=== PATIENT | male | born 1935 | race Two or more races ===

== ENCOUNTER 2022-05-22 20:05 | Inpatient (IN) | payer OTHER ==
[~2022-05-22] VITALS: Ht 170.2 cm; Wt 81.6 kg
--- NOTE | 2022-05-22 20:21 | NUR ---
: david at b/s examined and spoked with patient .
[2022-05-22] MEDS ORDERED: IV NORMAL SALINE 500 ML BAG IV ONE (20:30)
[2022-05-22 20:55] LABS: HEMATOCRIT 37.5 % (36.7-47.1); MEAN CORPUSCULAR HEMOGLOBIN 32.7 uug (23.8-33.4); MEAN CORPUSCULAR VOLUME 99.8 fL (73.0-96.2); PLATELET COUNT (AUTO) 288 K/uL (152-348)
[2022-05-22 20:59] LABS: CARBON DIOXIDE 25 mmol/L (21-32); CHLORIDE 103 mmol/L (98-107); CREATININE 2.1 mg/dL (0.6-1.3); GLUCOSE 120 mg/dL (74-106); POTASSIUM 3.8 mmol/L (3.5-5.1); UREA NITROGEN, BLOOD 39 mg/dL (7-18)
[2022-05-22 21:08] LABS: ALANINE AMINOTRANSFERASE 18 U/L (16-63); ALKALINE PHOSPHATASE 93 U/L (50-136); ASPARTATE AMINOTRANSFERASE 14 U/L (15-37); BILIRUBIN,DIRECT 0.1 mg/dL (0.0-0.2); BILIRUBIN,TOTAL 0.5 mg/dL (0.2-1.0); TOTAL PROTEIN, SERUM 8.2 g/dL (6.4-8.2)
[2022-05-22] MEDS ORDERED: IRBE1TAB41 PO (21:13)
[2022-05-22] MEDS ORDERED: NIFE90TA2 PO (21:13)
[2022-05-22] MEDS ORDERED: ASPI81TA31 PO (21:13)
[2022-05-22] MEDS ORDERED: HYDR-4077 PO (21:13)
[2022-05-22] MEDS ORDERED: SIMV-49 PO (21:13)
[2022-05-22] MEDS ORDERED: ALLO100T PO (21:13)
--- NOTE | 2022-05-22 21:40 | NUR ---
Urine taken to lab.
--- NOTE | 2022-05-22 21:45 | NUR ---
X-ray done at bedside.
[2022-05-22 22:08] LABS: *BILIRUBIN,URIN NEGATIVE (NEGATIVE); *BLOOD, URINE NEGATIVE (NEGATIVE); *CLARITY,URINE CLEAR (CLEAR); *COLOR,URINE YELLOW (YELLOW); *KETONES,URINE NEGATIVE (NEGATIVE); *UROBILINOGEN,URINE 0.2 E.U./dl (NORMAL); LEUKOCYTE ESTERASE ,URINE NEGATIVE (NEGATIVE); NITRITE, URINE NEGATIVE (NEGATIVE); PH,URINE 5.5 (5.0-8.0); UGLUCOSE NEGATIVE (NEGATIVE)
[2022-05-22] MEDS ORDERED: CLINDAMYCIN PHOSPHATE IV 600 MG in IV DEXTROSE 5% 100 ML IV STA (23:19)
[2022-05-22] MEDS ORDERED: CLINDAMYCIN PHOSPHATE 600 MG/4 ML VIAL ONE (23:51)
--- NOTE | 2022-05-23 00:15 | NUR ---
Called [facility] for panel call for admission. christina sosa
[2022-05-23] MEDS ORDERED: IV NS 1000 ML 1,000 ML IV PRN (00:30)
[2022-05-23] MEDS ORDERED: CEFTRIAXONE 1 G in IV DEXTROSE 5% 50 ML IV SCH (00:30)
[2022-05-23] MEDS ORDERED: ACETAMINOPHEN 325 MG TABLET PO PRN (00:30)
[2022-05-23] MEDS ORDERED: ONDANSETRON 4 MG/2 ML VIAL IV PRN (00:30)
[2022-05-23] MEDS ORDERED: CEFTRIAXONE /D5W 50ML IVPB **ER PYXIS IV ONE (00:51)
[2022-05-23 01:21] LABS: THYROID STIMULATING HORMONE 1.527 mIU/mL (0.358-3.740)
--- NOTE | 2022-05-23 01:30 | NUR ---
call for bed in tele unit. Instructed to call back at later time due to urgent matter in unit.
[2022-05-23 01:45] LABS: ALANINE AMINOTRANSFERASE 14 U/L (16-63); ALKALINE PHOSPHATASE 87 U/L (50-136); ASPARTATE AMINOTRANSFERASE 8 U/L (15-37); BILIRUBIN,TOTAL 0.5 mg/dL (0.2-1.0); CARBON DIOXIDE 22 mmol/L (21-32); CHLORIDE 104 mmol/L (98-107); CREATININE 2.1 mg/dL (0.6-1.3); GLUCOSE 138 mg/dL (74-106); MAGNESIUM 1.9 mg/dL (1.8-2.4); PHOSPHOROUS 2.9 mg/dL (2.5-4.9); POTASSIUM 3.7 mmol/L (3.5-5.1); UREA NITROGEN, BLOOD 34 mg/dL (7-18)
--- NOTE | 2022-05-23 03:42 | NUR ---
Call for bed for tele unit.
[2022-05-23 06:12] LABS: HEMATOCRIT 37.7 % (36.7-47.1); MEAN CORPUSCULAR HEMOGLOBIN 32.6 uug (23.8-33.4); MEAN CORPUSCULAR VOLUME 100.6 fL (73.0-96.2); PLATELET COUNT (AUTO) 260 K/uL (152-348)
--- NOTE | 2022-05-23 07:05 | NUR ---
REPORT RECEIVED FROM OUT GOING RN. PT A,A AND O X 3, SPOUSE AT BEDSIDE.
[2022-05-23 08:00] VITALS: BP 160/79
--- NOTE | 2022-05-23 08:00 | NUR ---
VS INDICATED HTN OF WHICH IS INDICATED IN PATIENT'S HX. HIS SPOUSE HAS HIS MEDICATIONS AT BEDSIDE AND AWAITING PCP TO REVIEW AND RECONCILE.DENIES BRYAN AND JASSO X4, SPEECH CLEAR. LOW GRADE TEMP 99.3 AND LAB REVIEWED THIS MORNING INDICATED WBC 14.0/CREAT 2.1 HANDS TREMORS AND DIFFICULTY SLEEPING REPORTED AND PCP TO ADDRESS.
[2022-05-23] MEDS ORDERED: PANTOPRAZOLE SODIUM 40 MG VIAL ONE (08:24)
[2022-05-23] MEDS: PANTOPRAZOLE SODIUM 40 MG VIAL IV SCH (08:37)
--- NOTE | 2022-05-23 09:37 | NUR ---
PCP IN TO EVAL PATIENT AND HOME MEDS WITH LIST OF PHYSICIAN PROVIDED BY SPOUSE. AWAITING NEW ORDERS PER PHYSICIAN'S ASSESSMENT AND PLAN.
[2022-05-23] MEDS ORDERED: ASPIRIN 81 MG TAB.CHEW PO SCH (10:15)
[2022-05-23] MEDS ORDERED: hydrALAZINE HCL 50 MG TABLET PO SCH (10:15)
--- NOTE | 2022-05-23 10:21 | NUR ---
B/P IS TRENDING DOWN FROM 160/79, NOW 146/82. NEW ORDERS NOTED.
[2022-05-23] MEDS ORDERED: CELE100C PO (10:30)
[2022-05-23] MEDS ORDERED: methylPREDNISolone SOD SUCC 40 MG/ML VIAL ONE (10:34)
[2022-05-23] MEDS ORDERED: ACETAMINOPHEN 325 MG TABLET ONE (10:34)
[2022-05-23] MEDS: IV 1/2NS 1000 ML 1,000 ML IV PRN (10:46)
--- NOTE | 2022-05-23 10:46 | NUR ---
BILAT ARMS PAIN 12/28. MEDICATED WITH TYLENOL 650 MG PO. RE-EVAL IN 1 HOUR
[2022-05-23] MEDS: methylPREDNISolone SOD SUCC 40 MG/ML VIAL IV SCH ×2 (10:47→23:23)
[2022-05-23 12:00] VITALS: BP 120/67
[2022-05-23 15:30] VITALS: BP 128/43
--- NOTE | 2022-05-23 15:30 | NUR ---
REPORT GIVEN TO GUERO JOHANSEN ASSUMING CARE FOR RM 304. PATIENT AND SPOUSE NOTIFIED.
[2022-05-23 16:24] VITALS: BP 124/70
--- NOTE | 2022-05-23 16:54 | NUR ---
86 year old male received to room 304 for fever ,pt is axox4.call light with in reach .vs are stable .family at bed side.
[2022-05-23] MEDS: ALLOPURINOL 100 MG TABLET PO SCH (17:10)
[2022-05-23] MEDS: hydrALAZINE HCL 50 MG TABLET PO SCH (17:10)
[2022-05-23 17:26] LABS: URIC ACID 5.2 mg/dL (3.5-7.2)
[2022-05-23 20:00] VITALS: BP 149/50
[2022-05-23 20:03] VITALS: BP 113/56
[2022-05-23] MEDS ORDERED: SIMVASTATIN 40 MG TABLET PO SCH (21:00)
[2022-05-24] VITALS: BP 121/54
[2022-05-24] MEDS: IV 1/2NS 1000 ML 1,000 ML IV PRN ×2 (01:53→16:23)
[2022-05-24 04:00] VITALS: BP 114/58
[2022-05-24] MEDS: ALLOPURINOL 100 MG TABLET PO SCH ×2 (08:01→16:13)
[2022-05-24] MEDS: hydrALAZINE HCL 50 MG TABLET PO SCH ×2 (08:01→16:13)
[2022-05-24] MEDS: PANTOPRAZOLE SODIUM 40 MG VIAL IV SCH (08:18)
[2022-05-24] MEDS: methylPREDNISolone SOD SUCC 40 MG/ML VIAL IV SCH (08:18)
[2022-05-24 08:22] LABS: HEMATOCRIT 35.4 % (36.7-47.1); MEAN CORPUSCULAR HEMOGLOBIN 33.1 uug (23.8-33.4); MEAN CORPUSCULAR VOLUME 99.5 fL (73.0-96.2); PLATELET COUNT (AUTO) 267 K/uL (152-348)
[2022-05-24 08:28] LABS: CARBON DIOXIDE 23 mmol/L (21-32); CHLORIDE 104 mmol/L (98-107); CREATININE 2.1 mg/dL (0.6-1.3); GLUCOSE 134 mg/dL (74-106); POTASSIUM 3.7 mmol/L (3.5-5.1); UREA NITROGEN, BLOOD 43 mg/dL (7-18)
[2022-05-24] MEDS ORDERED: Medication Not On Formulary EA (Irbesartan/Hydrochlorothiazide (Avalide 150-12.5 Mg Tabl PO SCH (09:00)
[2022-05-24] MEDS ORDERED: LOSARTAN POTASSIUM 50 MG TABLET PO SCH (09:00)
[2022-05-24] MEDS ORDERED: hydrALAZINE HCL 50 MG TABLET PO SCH (09:00)
[2022-05-24] MEDS ORDERED: ASPIRIN 81 MG TAB.CHEW PO SCH (09:00)
[2022-05-24] MEDS ORDERED: HYDROCHLOROTHIAZIDE 12.5 MG CAPSULE PO SCH (09:00)
[2022-05-24] MEDS ORDERED: NIFEdipine XL 90 MG TABSR PO SCH (09:00)
[2022-05-24] MEDS ORDERED: ALLOPURINOL 100 MG TABLET PO SCH (09:00)
[2022-05-24] MEDS ORDERED: AMOX-430 PO (09:29)
[2022-05-24] MEDS ORDERED: METH4TAB3 PO (09:30)
[2022-05-24 11:33] VITALS: BP 123/52
[2022-05-24 15:36] VITALS: BP 120/55
[2022-05-24 16:13] VITALS: BP 120/55
--- NOTE | 2022-05-24 17:20 | NUR ---
dc orders received noted and carried out.dc instruction and education given to the pt .pt said he will follow up with his pcp in one week ,pt left the facility via private car in stable condition
== END 2022-05-24 17:20 | disposition home health service (06) | DRG 602 ==
LOC: ER 20:05 → TRANSITION 05-23 08:46 → TELE3 05-23 15:55 → MEDSURG3 05-24 09:18
PROVIDERS: ADMIT Internal Medicine; ATTEND Internal Medicine
DX: L03.114 Cellulitis of left upper limb (principal); N17.0 Acute kidney failure with tubular necrosis; Z79.82 Long term (current) use of aspirin; G25.0 Essential tremor; I12.9 Hypertensive chronic kidney disease with stage 1 through stage 4 chronic kidney disease, or unspecified chronic kidney disease; N18.9 Chronic kidney disease, unspecified; M10.9 Gout, unspecified; M19.042 Primary osteoarthritis, left hand; Z20.822 Contact with and (suspected) exposure to COVID-19
CPT/HCPCS: 36415; 71045; 73130; 83605; 83735; 84100; 84443; 84484; 84550; 85025; 85651; 85730; 86140; 87040; 87086; 93005; A4663; C9113; G0378; J0696; J2920; J3490; J7040; J8499

== ENCOUNTER 2022-05-27 22:57 | Inpatient (IN) | payer OTHER ==
[~2022-05-27] VITALS: Ht 170.2 cm; Wt 75.7 kg
[~2022-05-27 22:57] MED LIST: ALLO100T PO; AMOX-430 PO; ASPI81TA31 PO; HYDR-4077 PO; IRBE1TAB41 PO; METH4TAB3 PO; NIFE90TA2 PO; SIMV-49 PO
--- NOTE | 2022-05-28 00:25 | NUR ---
Patient placed in room 1b at this time.
--- NOTE | 2022-05-28 00:38 | NUR ---
gis technician into do Ultrasound.
[2022-05-28 00:47] LABS: HEMATOCRIT 38.6 % (36.7-47.1); MEAN CORPUSCULAR HEMOGLOBIN 32.6 uug (23.8-33.4); MEAN CORPUSCULAR VOLUME 99.9 fL (73.0-96.2); PLATELET COUNT (AUTO) 367 K/uL (152-348)
[2022-05-28 00:54] LABS: CARBON DIOXIDE 23 mmol/L (21-32); CHLORIDE 105 mmol/L (98-107); CREATININE 1.9 mg/dL (0.6-1.3); GLUCOSE 111 mg/dL (74-106); POTASSIUM 3.9 mmol/L (3.5-5.1); UREA NITROGEN, BLOOD 42 mg/dL (7-18)
[2022-05-28 03:08] LABS: URIC ACID 4.8 mg/dL (3.5-7.2)
--- NOTE | 2022-05-28 03:41 | NUR ---
Patient is able to walk to the restroom with steady gait
[2022-05-28] MEDS ORDERED: CYANOCOBALAMIN 1000 MCG/ML VIAL ONE (03:56)
[2022-05-28] MEDS ORDERED: CYANOCOBALAMIN 1000 MCG/ML VIAL IM ONE (04:00)
[2022-05-28] MEDS ORDERED: OXYCODONE/APAP 5-325 MG TABLET PO ONE (04:15)
[2022-05-28] MEDS ORDERED: NAFCILLIN IV ONE (04:15)
[2022-05-28] MEDS ORDERED: VANCOMYCIN IV 1,000 MG in IV DEXTROSE 5% 250 ML IV ONE (04:15)
[2022-05-28] MEDS ORDERED: NORMAL SALINE IV ONE (04:15)
[2022-05-28] MEDS ORDERED: VANCOMYCIN IV 200 ML ONE (04:23)
[2022-05-28] MEDS ORDERED: NAFCILLIN SODIUM ONE (04:23)
[2022-05-28] MEDS ORDERED: OXYCODONE/APAP 5-325 MG TABLET ONE (04:25)
--- NOTE | 2022-05-28 04:50 | NUR ---
call to [facility] for panel admission.
--- NOTE | 2022-05-28 04:51 | NUR ---
jose dahl called back for panel admission.
--- NOTE | 2022-05-28 05:38 | NUR ---
Called for bed. No beds available at this time
--- NOTE | 2022-05-28 07:05 | NUR ---
change of shift report to Chacha JOHANSEN
--- NOTE | 2022-05-28 07:10 | NUR ---
Received pt. AAOx4. vitals stable no c/of pain.
[2022-05-28] MEDS ORDERED: ONDANSETRON 4 MG/2 ML VIAL IV PRN (07:15)
[2022-05-28] MEDS ORDERED: IV NS 1000 ML 1,000 ML IV PRN (07:15)
--- NOTE | 2022-05-28 07:26 | NUR ---
Received pt. AAOX4. watching tv. family at bedside. HR of 66, saturation of 95%, RR 18, sbp of 148/74. Addendum: 05/28/22 at 0732 by DYLON No c/o of pain or any other discomfort.
[2022-05-28 07:39] LABS: HEMATOCRIT 35.3 % (36.7-47.1); MEAN CORPUSCULAR HEMOGLOBIN 32.9 uug (23.8-33.4); MEAN CORPUSCULAR VOLUME 99.3 fL (73.0-96.2); PLATELET COUNT (AUTO) 340 K/uL (152-348)
[2022-05-28 07:44] LABS: CARBON DIOXIDE 24 mmol/L (21-32); CHLORIDE 106 mmol/L (98-107); CREATININE 1.8 mg/dL (0.6-1.3); GLUCOSE 100 mg/dL (74-106); POTASSIUM 3.8 mmol/L (3.5-5.1); UREA NITROGEN, BLOOD 37 mg/dL (7-18)
[2022-05-28] MEDS ORDERED: ONDANSETRON 4 MG/2 ML VIAL ONE (09:30)
[2022-05-28] MEDS ORDERED: LIDOCAINE-MPF 2% 5 ML VIAL ONE (09:30)
[2022-05-28] MEDS ORDERED: PROPOFOL 200 MG/20 ML BOTTLE ONE (09:30)
[2022-05-28] MEDS ORDERED: DEXAMETHASONE SOD PHOSPHATE 4 MG INJ ONE (09:30)
--- NOTE | 2022-05-28 12:00 | NUR ---
98.7, LEK336/81, HR 65 rr 17 saturation 97% on RA.
[2022-05-28] MEDS ORDERED: NIFE-35 PO (13:12)
[2022-05-28] MEDS: ASPIRIN 81 MG TAB.CHEW PO SCH (14:00)
[2022-05-28] MEDS ORDERED: NIFEdipine XL 30 MG TABSR PO ONE (14:00)
[2022-05-28] MEDS ORDERED: methylPREDNISolone 1 PACK TAB.DS.PK [4MG TAB] PO SCH (14:00)
[2022-05-28] MEDS ORDERED: methylPREDNISolone 4 MG TABLET (DAY#3, PC LUNCH) PO ONE (14:30)
--- NOTE | 2022-05-28 14:35 | NUR ---
Pt. taken up to room 310 via gurney. situated in bed. AAOX4.
[2022-05-28 14:39] VITALS: BP 150/78
[2022-05-28] MEDS ORDERED: NIFEdipine XL 90 MG TABSR PO ONE (14:45)
--- NOTE | 2022-05-28 14:54 | NUR ---
86 year old male received to room 310 for cellulites .pt is axox4 .vs are stable call light with in reach md notified for admission
[2022-05-28] MEDS: ALLOPURINOL 100 MG TABLET PO SCH (17:06)
[2022-05-28] MEDS: hydrALAZINE HCL 50 MG TABLET PO SCH (17:07)
[2022-05-28] MEDS ORDERED: methylPREDNISolone 4 MG TABLET (DAY#3, PC DINNER) PO ONE (18:30)
[2022-05-28 20:09] VITALS: BP 133/72
[2022-05-28] MEDS ORDERED: ENALAPRILAT DIHYDRATE 1.25 MG/1 ML VIAL IV PRN (20:45)
[2022-05-28] MEDS: SIMVASTATIN 40 MG TABLET PO SCH (20:53)
[2022-05-28] MEDS: PIPERACILLIN SODIUM/TAZOBACTAM 3.375 G in IV DEXTROSE 5% 100 ML IV SCH (20:53)
[2022-05-28] MEDS ORDERED: HYDROCODONE/APAP 5-325MG TABLET PO PRN (21:00)
[2022-05-28] MEDS ORDERED: methylPREDNISolone 4 MG TABLET (DAY#3, HS) PO ONE (21:00)
[2022-05-28] MEDS ORDERED: MORPHINE SULFATE 2 MG/1 ML DISP.SYRIN IV PRN (21:00)
[2022-05-28] MEDS ORDERED: TEMAZEPAM 15 MG CAPSULE PO PRN (21:30)
[2022-05-28] MEDS ORDERED: IV D5 1/2 NS 1000 ML 1,000 ML IV SCH (22:30)
[2022-05-29] MEDS ORDERED: PIPERACILLIN/TAZO 2.25 G in IV DEXTROSE 5% 50 ML IV SCH ×2
[2022-05-29 00:03] VITALS: BP 130/66
[2022-05-29 04:00] VITALS: BP 125/72
[2022-05-29] MEDS: VANCOMYCIN IV 750 MG in IV DEXTROSE 5% 250 ML IV SCH (05:26)
[2022-05-29] MEDS ORDERED: VANCOMYCIN 1000 MG VIAL ONE (06:54)
[2022-05-29 07:27] LABS: HEMATOCRIT 36.3 % (36.7-47.1); MEAN CORPUSCULAR HEMOGLOBIN 32.9 uug (23.8-33.4); MEAN CORPUSCULAR VOLUME 98.8 fL (73.0-96.2); PLATELET COUNT (AUTO) 340 K/uL (152-348)
[2022-05-29] MEDS ORDERED: methylPREDNISolone 4 MG TABLET (DAY#4, ACB) PO ONE (07:30)
--- NOTE | 2022-05-29 07:30 | NUR ---
pt went to or for surgery via bed in stable condition
[2022-05-29] MEDS ORDERED: FENTANYL CITRATE 100 MCG/2 ML AMPUL ONE (07:32)
[2022-05-29 07:35] LABS: ALANINE AMINOTRANSFERASE 13 U/L (16-63); ALKALINE PHOSPHATASE 66 U/L (50-136); ASPARTATE AMINOTRANSFERASE 10 U/L (15-37); BILIRUBIN,TOTAL 0.4 mg/dL (0.2-1.0); CARBON DIOXIDE 25 mmol/L (21-32); CHLORIDE 103 mmol/L (98-107); CHOLESTEROL 108 mg/dL (<200); CREATININE 1.9 mg/dL (0.6-1.3); GLUCOSE 137 mg/dL (74-106); HDL CHOLESTEROL 39 mg/dL (40-60); MAGNESIUM 2.2 mg/dL (1.8-2.4); PHOSPHOROUS 3.5 mg/dL (2.5-4.9); POTASSIUM 3.8 mmol/L (3.5-5.1); TOTAL PROTEIN, SERUM 7.1 g/dL (6.4-8.2); TRIGLYCERIDES 65 MG/DL (30-150); UREA NITROGEN, BLOOD 30 mg/dL (7-18)
[2022-05-29] MEDS: ASPIRIN 81 MG TAB.CHEW PO SCH ×2 (09:00→16:26)
[2022-05-29 10:00] VITALS: BP 162/72
--- NOTE | 2022-05-29 10:08 | NUR ---
pt received from recovery room via bed in stable condition.vs are stable call light with in reach pt is axox4
[2022-05-29] MEDS: NIFEdipine XL 90 MG TABSR PO SCH (10:09)
[2022-05-29] MEDS: hydrALAZINE HCL 50 MG TABLET PO SCH ×2 (10:09→16:14)
[2022-05-29] MEDS: ALLOPURINOL 100 MG TABLET PO SCH ×2 (10:10→16:14)
[2022-05-29] MEDS: PIPERACILLIN SODIUM/TAZOBACTAM 3.375 G in IV DEXTROSE 5% 100 ML IV SCH ×2 (10:17→17:39)
[2022-05-29] MEDS: IV D5W-0.45% NS +20 KCL 1,000 ML IV PRN (10:19)
[2022-05-29 11:12] VITALS: BP 145/78
[2022-05-29] MEDS ORDERED: methylPREDNISolone 4 MG TABLET (DAY#4, PC LUNCH) PO ONE (12:30)
[2022-05-29 15:03] VITALS: BP 140/70
[2022-05-29] MEDS: ACETAMINOPHEN 325 MG TABLET PO PRN (16:26)
[2022-05-29 20:00] VITALS: BP 138/54
[2022-05-29] MEDS: SIMVASTATIN 40 MG TABLET PO SCH (20:35)
[2022-05-29] MEDS ORDERED: methylPREDNISolone 4 MG TABLET (DAY#4, HS) PO ONE (21:00)
[2022-05-30] VITALS: BP 128/55
[2022-05-30] MEDS: PIPERACILLIN SODIUM/TAZOBACTAM 3.375 G in IV DEXTROSE 5% 100 ML IV SCH ×3 (02:03→17:05)
[2022-05-30] MEDS: MORPHINE SULFATE 2 MG/1 ML DISP.SYRIN IV PRN ×5 (02:13→21:57)
[2022-05-30] MEDS: IV D5W-0.45% NS +20 KCL 1,000 ML IV PRN ×2 (02:16→18:02)
[2022-05-30 04:00] VITALS: BP 154/62
[2022-05-30] MEDS: VANCOMYCIN IV 750 MG in IV DEXTROSE 5% 250 ML IV SCH (05:46)
[2022-05-30 06:42] LABS: CARBON DIOXIDE 23 mmol/L (21-32); CHLORIDE 105 mmol/L (98-107); CREATININE 1.8 mg/dL (0.6-1.3); GLUCOSE 125 mg/dL (74-106); POTASSIUM 4.2 mmol/L (3.5-5.1); UREA NITROGEN, BLOOD 24 mg/dL (7-18)
[2022-05-30] MEDS ORDERED: methylPREDNISolone 4 MG TABLET (DAY#5, ACB) PO ONE (07:30)
[2022-05-30] MEDS: ASPIRIN 81 MG TAB.CHEW PO SCH (08:15)
[2022-05-30] MEDS: hydrALAZINE HCL 50 MG TABLET PO SCH ×2 (08:15→16:24)
[2022-05-30] MEDS: NIFEdipine XL 90 MG TABSR PO SCH (08:15)
[2022-05-30] MEDS: ALLOPURINOL 100 MG TABLET PO SCH ×2 (08:16→16:24)
[2022-05-30] MEDS: ACIDOPHILUS/BULGARICUS CHEW TAB PO SCH ×2 (10:46→20:34)
[2022-05-30 11:45] VITALS: BP 123/69
[2022-05-30] MEDS: ACETAMINOPHEN 325 MG TABLET PO PRN (12:00)
[2022-05-30] MEDS: PREGABALIN 25 MG CAPSULE PO SCH ×2 (14:56→20:35)
[2022-05-30 15:00] LABS: HEMATOCRIT 33.5 % (36.7-47.1); MEAN CORPUSCULAR HEMOGLOBIN 32.6 uug (23.8-33.4); MEAN CORPUSCULAR VOLUME 99.9 fL (73.0-96.2); PLATELET COUNT (AUTO) 357 K/uL (152-348)
[2022-05-30 16:32] VITALS: BP 125/55
[2022-05-30] MEDS: SIMVASTATIN 40 MG TABLET PO SCH (20:34)
[2022-05-30] MEDS ORDERED: methylPREDNISolone 4 MG TABLET (DAY#5, HS) PO ONE (21:00)
[2022-05-31] MEDS: MORPHINE SULFATE 2 MG/1 ML DISP.SYRIN IV PRN ×6 (00:25→17:12)
[2022-05-31] MEDS: ACETAMINOPHEN 325 MG TABLET PO PRN ×3 (01:03→20:41)
[2022-05-31] MEDS: PIPERACILLIN SODIUM/TAZOBACTAM 3.375 G in IV DEXTROSE 5% 100 ML IV SCH ×3 (02:04→17:12)
[2022-05-31 05:08] LABS: HEMATOCRIT 31.3 % (36.7-47.1); MEAN CORPUSCULAR HEMOGLOBIN 32.6 uug (23.8-33.4); MEAN CORPUSCULAR VOLUME 98.6 fL (73.0-96.2); PLATELET COUNT (AUTO) 353 K/uL (152-348)
[2022-05-31 05:20] LABS: ALANINE AMINOTRANSFERASE 38 U/L (16-63); ALKALINE PHOSPHATASE 56 U/L (50-136); ASPARTATE AMINOTRANSFERASE 56 U/L (15-37); BILIRUBIN,TOTAL 0.4 mg/dL (0.2-1.0); CARBON DIOXIDE 25 mmol/L (21-32); CHLORIDE 103 mmol/L (98-107); CREATININE 2.1 mg/dL (0.6-1.3); GLUCOSE 132 mg/dL (74-106); MAGNESIUM 1.9 mg/dL (1.8-2.4); PHOSPHOROUS 3.3 mg/dL (2.5-4.9); POTASSIUM 4.2 mmol/L (3.5-5.1); TOTAL PROTEIN, SERUM 6.2 g/dL (6.4-8.2); UREA NITROGEN, BLOOD 28 mg/dL (7-18)
[2022-05-31] MEDS: VANCOMYCIN IV 750 MG in IV DEXTROSE 5% 250 ML IV SCH (06:02)
[2022-05-31] MEDS: PANTOPRAZOLE SODIUM 40 MG TABLET.DR PO SCH (06:30)
[2022-05-31] MEDS ORDERED: methylPREDNISolone 4 MG TABLET (DAY#6, ACB) PO ONE (07:30)
[2022-05-31 08:27] VITALS: BP 147/73
[2022-05-31] MEDS: PREGABALIN 25 MG CAPSULE PO SCH ×2 (08:28→20:41)
[2022-05-31] MEDS: NIFEdipine XL 90 MG TABSR PO SCH (08:28)
[2022-05-31] MEDS: ALLOPURINOL 100 MG TABLET PO SCH ×2 (08:28→16:18)
[2022-05-31] MEDS: hydrALAZINE HCL 50 MG TABLET PO SCH ×2 (08:28→16:18)
[2022-05-31] MEDS: ACIDOPHILUS/BULGARICUS CHEW TAB PO SCH ×2 (08:28→20:41)
[2022-05-31] MEDS: ASPIRIN 81 MG TAB.CHEW PO SCH (08:28)
[2022-05-31] MEDS: IV D5W-0.45% NS +20 KCL 1,000 ML IV PRN (08:34)
[2022-05-31 11:47] VITALS: BP 120/52
--- NOTE | 2022-05-31 13:30 | NUR ---
REQUESTED RN TO PHONE RADIOLOGY, RELAY MESSAGE VIA [employer] TO HOMER. HOMER TO CALL RADIOLOGY
[2022-05-31 14:34] LABS: *BILIRUBIN,URIN NEGATIVE (NEGATIVE); *BLOOD, URINE NEGATIVE (NEGATIVE); *CLARITY,URINE CLEAR (CLEAR); *COLOR,URINE YELLOW (YELLOW); *KETONES,URINE NEGATIVE (NEGATIVE); *UROBILINOGEN,URINE 0.2 E.U./dl (NORMAL); LEUKOCYTE ESTERASE ,URINE NEGATIVE (NEGATIVE); NITRITE, URINE NEGATIVE (NEGATIVE); PH,URINE 5.5 (5.0-8.0); UGLUCOSE NEGATIVE (NEGATIVE)
[2022-05-31] MEDS: MAGNESIUM HYDROXIDE 30 ML LIQUID UDC PO PRN (15:06)
[2022-05-31 15:18] LABS: *CREATININE,URINE 118.8 mg/dL (30-125)
[2022-05-31] MEDS ORDERED: IV NS 1000 ML 1,000 ML IV ONE (15:30)
[2022-05-31 15:32] LABS: RBC,URINE 0-3 /HPF (0-3)
[2022-05-31 15:33] LABS: BACTERIA,URINE FEW /HPF (NONE SEEN); SQUAMOUS EPITHELIAL CELL,UR FEW /HPF (NONE SEEN); WBC,URINE NONE SEEN /HPF (0-3)
[2022-05-31 16:08] VITALS: BP 120/63
[2022-05-31] MEDS ORDERED: MORPHINE SULFATE 2 MG/1 ML DISP.SYRIN IV PRN (18:45)
[2022-05-31 20:30] VITALS: BP 131/59
[2022-05-31] MEDS: SIMVASTATIN 40 MG TABLET PO SCH (20:41)
[2022-05-31] MEDS: HYDROCODONE/APAP 10-325 MG TABLET PO PRN (21:38)
[2022-05-31] MEDS ORDERED: IV NS 1000 ML 1,000 ML IV SCH (23:45)
[2022-06-01] VITALS: BP 114/51
[2022-06-01] MEDS: PIPERACILLIN SODIUM/TAZOBACTAM 3.375 G in IV DEXTROSE 5% 100 ML IV SCH ×2 (02:05→09:56)
[2022-06-01] MEDS: HYDROCODONE/APAP 5-325MG TABLET PO PRN ×2 (02:36→11:23)
[2022-06-01 04:05] VITALS: BP 119/55
[2022-06-01] MEDS: IV NS 1000 ML 1,000 ML IV PRN (05:02)
[2022-06-01] MEDS ORDERED: VANCOMYCIN IV 1,000 MG in IV DEXTROSE 5% 250 ML IV ONE (06:00)
[2022-06-01] MEDS: PANTOPRAZOLE SODIUM 40 MG TABLET.DR PO SCH (06:34)
[2022-06-01 06:54] LABS: MEAN CORPUSCULAR HEMOGLOBIN 32.5 uug (23.8-33.4); PLATELET COUNT (AUTO) 321 K/uL (152-348)
[2022-06-01 07:13] LABS: CARBON DIOXIDE 21 mmol/L (21-32); CHLORIDE 100 mmol/L (98-107); CREATININE 2.4 mg/dL (0.6-1.3); GLUCOSE 104 mg/dL (74-106); MAGNESIUM 2.2 mg/dL (1.8-2.4); PHOSPHOROUS 4.1 mg/dL (2.5-4.9); POTASSIUM 4.2 mmol/L (3.5-5.1); UREA NITROGEN, BLOOD 35 mg/dL (7-18)
[2022-06-01] MEDS: hydrALAZINE HCL 50 MG TABLET PO SCH ×2 (08:23→16:37)
[2022-06-01] MEDS: ALLOPURINOL 100 MG TABLET PO SCH ×2 (08:23→16:37)
[2022-06-01] MEDS: NIFEdipine XL 90 MG TABSR PO SCH (08:23)
[2022-06-01] MEDS: ACIDOPHILUS/BULGARICUS CHEW TAB PO SCH ×2 (08:23→20:04)
[2022-06-01] MEDS: PREGABALIN 25 MG CAPSULE PO SCH ×2 (08:23→20:04)
[2022-06-01] MEDS: ASPIRIN 81 MG TAB.CHEW PO SCH (08:23)
[2022-06-01 11:59] VITALS: BP 107/51
[2022-06-01] MEDS: ACETAMINOPHEN 325 MG TABLET PO PRN (14:23)
--- NOTE | 2022-06-01 14:29 | NUR ---
pt is feeling hot and recheck the temp pt temp is 103 cooling measure provided and made aware
--- NOTE | 2022-06-01 14:29 | NUR ---
dressing change per md orders no drainage or ant redness noted,
--- NOTE | 2022-06-01 15:16 | NUR ---
RECHECK THE TEMP STILL 103 ID SMUDGER LINWOOD NOTIFIED
[2022-06-01 16:14] VITALS: BP 147/55
[2022-06-01] MEDS: HYDROCODONE/APAP 10-325 MG TABLET PO PRN (16:37)
--- NOTE | 2022-06-01 16:39 | NUR ---
patient running rectal temperature. cooling measures in place, patient placed on cooling blanket with Gaymar machine. continue to monitor rectal temperature. Addendum: 06/01/22 at 1647 by MARYCRUZ SUERO LVN patient is alert, oriented x4, no sob, no acute distress noted at this time, son is at bedside. patient rectal temperature started to come down to 102.7. continue to close monitor.
[2022-06-01] MEDS ORDERED: MEROPENEM 1 G in IV NORMAL SALINE 100 ML IV SCH (17:00)
[2022-06-01] MEDS: SIMVASTATIN 10 MG TABLET PO SCH (20:04)
[2022-06-01] MEDS: MAGNESIUM HYDROXIDE 30 ML LIQUID UDC PO PRN (20:04)
[2022-06-01 20:45] VITALS: BP 104/59
[2022-06-02] MEDS ORDERED: VANCOMYCIN 1000 MG VIAL ONE (01:44)
[2022-06-02] MEDS ORDERED: MEROPENEM 1 G VIAL IV ONE (01:45)
--- NOTE | 2022-06-02 04:00 | NUR ---
pt slept the whole night no c/o pain noted call light with in reach vs are stable
[2022-06-02] MEDS: MEROPENEM 1 G in IV NORMAL SALINE 100 ML IV SCH ×2 (04:20→16:48)
[2022-06-02] MEDS: HYDROCODONE/APAP 10-325 MG TABLET PO PRN ×3 (04:23→16:48)
[2022-06-02 04:38] VITALS: BP 138/61
[2022-06-02] MEDS: VANCOMYCIN IV 750 MG in IV DEXTROSE 5% 250 ML IV SCH (05:13)
[2022-06-02] MEDS: PANTOPRAZOLE SODIUM 40 MG TABLET.DR PO SCH (06:07)
[2022-06-02 07:27] LABS: HEMATOCRIT 29.3 % (36.7-47.1); MEAN CORPUSCULAR HEMOGLOBIN 32.7 uug (23.8-33.4); MEAN CORPUSCULAR VOLUME 98.1 fL (73.0-96.2); PLATELET COUNT (AUTO) 350 K/uL (152-348)
[2022-06-02 07:49] LABS: ALANINE AMINOTRANSFERASE 78 U/L (16-63); ALKALINE PHOSPHATASE 79 U/L (50-136); ASPARTATE AMINOTRANSFERASE 64 U/L (15-37); BILIRUBIN,TOTAL 0.5 mg/dL (0.2-1.0); CARBON DIOXIDE 24 mmol/L (21-32); CHLORIDE 101 mmol/L (98-107); CREATININE 2.5 mg/dL (0.6-1.3); GLUCOSE 98 mg/dL (74-106); MAGNESIUM 2.6 mg/dL (1.8-2.4); PHOSPHOROUS 4.3 mg/dL (2.5-4.9); POTASSIUM 4.7 mmol/L (3.5-5.1); TOTAL PROTEIN, SERUM 6.5 g/dL (6.4-8.2); UREA NITROGEN, BLOOD 48 mg/dL (7-18)
--- NOTE | 2022-06-02 08:00 | NUR ---
RECEIVED PATIENT IN BED AWAKE AND ORIENTED X3 NO SS OF DISTRESS OR SOB. SR 96 ON MONITOR. AFEBRILE
[2022-06-02] MEDS: ASPIRIN 81 MG TAB.CHEW PO SCH (08:45)
[2022-06-02] MEDS: ALLOPURINOL 100 MG TABLET PO SCH ×2 (08:45→16:47)
[2022-06-02] MEDS: ACIDOPHILUS/BULGARICUS CHEW TAB PO SCH ×2 (08:45→21:20)
[2022-06-02] MEDS: PREGABALIN 25 MG CAPSULE PO SCH ×2 (08:45→21:20)
[2022-06-02] MEDS: hydrALAZINE HCL 50 MG TABLET PO SCH ×2 (08:46→16:47)
[2022-06-02] MEDS: NIFEdipine XL 90 MG TABSR PO SCH (08:46)
--- NOTE | 2022-06-02 09:30 | NUR ---
SEEN BY DR LEARY WITH ORDER TO CHECK FOR ANTIGEN, CONTINUE HEART MONITORING
[2022-06-02] MEDS: ACETAMINOPHEN 325 MG TABLET PO PRN (09:47)
[2022-06-02 10:14] LABS: *RHEUMATOID FACTOR SCREEN NEGATIVE (NEGATIVE)
[2022-06-02] MEDS: ENSURE CLEAR 240 ML LIQUID (MIX BERRY) PO SCH ×2 (10:44→16:48)
[2022-06-02] MEDS: IV NS 1000 ML 1,000 ML IV PRN (10:44)
[2022-06-02 12:00] VITALS: BP 110/46
--- NOTE | 2022-06-02 12:00 | NUR ---
SEEN BY PHYSICAL THERAPIST FOR EXERCISES SEE NOTES
[2022-06-02 16:00] VITALS: BP 129/55
--- NOTE | 2022-06-02 17:14 | NUR ---
CONTINUE WITH PAIN MANAGEMENT, REMAINS AFEBRILE, CONTINUE WITH IV ANTIBIOTIC
--- NOTE | 2022-06-02 19:31 | NUR ---
Patient alert oriented, family at bedside, no complain of pain, no sob no chest pain, tele monitor sinus rhythm at this time, will continue to monitor. temp 100.1, but patient lots of pillow and blanket, son states that probably due to extra covers causing the temp, uncover the patient and will recheck.
[2022-06-02 20:00] VITALS: BP 141/61
--- NOTE | 2022-06-02 20:00 | NUR ---
Patient current temp 99.1 states he feel uday and no pain at this time. cont to monitor temp.
[2022-06-02] MEDS: SIMVASTATIN 10 MG TABLET PO SCH (21:20)
[2022-06-02 23:00] VITALS: BP 125/51
--- NOTE | 2022-06-03 | NUR ---
Patient was asked if he had bowel lately, son state that patient had large BM yesterday and he believes the father is not constipated.
[2022-06-03] MEDS: HYDROCODONE/APAP 10-325 MG TABLET PO PRN ×4 (00:09→19:57)
--- NOTE | 2022-06-03 01:29 | NUR ---
Patient has elevated temp, given cooling measures, given Narco 10/325 po pain and comfort. patient had large BM the day before according to son, no symptoms of distress. cont to monitor.
[2022-06-03] MEDS: ACETAMINOPHEN 325 MG TABLET PO PRN ×3 (02:42→20:21)
[2022-06-03] MEDS: IV NS 1000 ML 1,000 ML IV PRN ×3 (03:58→21:29)
[2022-06-03 04:16] VITALS: BP 134/53
[2022-06-03] MEDS: MEROPENEM 1 G in IV NORMAL SALINE 100 ML IV SCH (05:36)
--- NOTE | 2022-06-03 05:53 | NUR ---
Patient asleep but arousable, no sob no chest pain, sinus rhythm on the tele, current temp 98.9 orally, no complains of pain at this time, cont to monitor.
[2022-06-03] MEDS: PANTOPRAZOLE SODIUM 40 MG TABLET.DR PO SCH (07:09)
[2022-06-03 08:11] LABS: HEMATOCRIT 27.1 % (36.7-47.1); MEAN CORPUSCULAR HEMOGLOBIN 33.4 uug (23.8-33.4); MEAN CORPUSCULAR VOLUME 97.4 fL (73.0-96.2); PLATELET COUNT (AUTO) 364 K/uL (152-348)
[2022-06-03] MEDS: ENSURE CLEAR 240 ML LIQUID (MIX BERRY) PO SCH ×2 (08:19→17:11)
--- NOTE | 2022-06-03 08:30 | NUR ---
temp 102.5 was reported.Patient was started on cooling measures.Tylenol given. RN EMERGENCY ROOM:DEVONTE WAS PAGED,RETURNED CALL WITH NEW ORDERS.BCX2.LACTIC ACID ,UA & URINE CULTURE WAS SENT.
[2022-06-03 08:48] LABS: ALANINE AMINOTRANSFERASE 77 U/L (16-63); ALKALINE PHOSPHATASE 90 U/L (50-136); ASPARTATE AMINOTRANSFERASE 55 U/L (15-37); BILIRUBIN,TOTAL 0.4 mg/dL (0.2-1.0); CARBON DIOXIDE 22 mmol/L (21-32); CHLORIDE 103 mmol/L (98-107); CREATININE 2.6 mg/dL (0.6-1.3); GLUCOSE 102 mg/dL (74-106); POTASSIUM 4.8 mmol/L (3.5-5.1); TOTAL PROTEIN, SERUM 6.4 g/dL (6.4-8.2); UREA NITROGEN, BLOOD 55 mg/dL (7-18)
[2022-06-03] MEDS: ASPIRIN 81 MG TAB.CHEW PO SCH (09:04)
[2022-06-03] MEDS: hydrALAZINE HCL 50 MG TABLET PO SCH ×2 (09:04→17:10)
[2022-06-03] MEDS: ACIDOPHILUS/BULGARICUS CHEW TAB PO SCH ×2 (09:04→19:56)
[2022-06-03] MEDS: PREGABALIN 25 MG CAPSULE PO SCH ×2 (09:04→19:56)
[2022-06-03] MEDS: ALLOPURINOL 100 MG TABLET PO SCH ×2 (09:04→17:10)
[2022-06-03] MEDS: NIFEdipine XL 90 MG TABSR PO SCH (09:05)
[2022-06-03 09:07] LABS: *ANTI-SCLERODERMA-70 AB <0.2 AI (0.0-0.9); *SJOGREN'S ANTI-SS-A <0.2 AI (0.0-0.9); *SJOGREN'S ANTI-SS-B <0.2 AI (0.0-0.9); *SMITH ANTIBODIES <0.2 AI (0.0-0.9); ANTI-DNA(DS) AB, QN <1 IU/mL (0-9)
[2022-06-03] MEDS: VANCOMYCIN IV 750 MG in IV DEXTROSE 5% 250 ML IV SCH (09:09)
--- NOTE | 2022-06-03 09:30 | NUR ---
FAMILY AT BEDSIDE,UPDATED WITH PT.CONDITION AND PLAN OF CARE.
[2022-06-03 11:42] LABS: THYROID STIMULATING HORMONE 1.628 mIU/mL (0.358-3.740)
[2022-06-03 12:00] VITALS: BP 137/62
[2022-06-03 16:00] VITALS: BP 144/66
[2022-06-03] MEDS: SIMVASTATIN 10 MG TABLET PO SCH (19:56)
[2022-06-03 20:26] VITALS: BP 140/68
[2022-06-03 22:41] LABS: *BILIRUBIN,URIN NEGATIVE (NEGATIVE); *BLOOD, URINE NEGATIVE (NEGATIVE); *CLARITY,URINE CLEAR (CLEAR); *COLOR,URINE YELLOW (YELLOW); *KETONES,URINE NEGATIVE (NEGATIVE); *UROBILINOGEN,URINE 0.2 E.U./dl (NORMAL); LEUKOCYTE ESTERASE ,URINE NEGATIVE (NEGATIVE); NITRITE, URINE NEGATIVE (NEGATIVE); UGLUCOSE NEGATIVE (NEGATIVE)
--- NOTE | 2022-06-03 23:59 | NUR ---
PT.SLEEPING,NO S/S OF DISTRESS OR PAIN NOTED.SON AT BEDSIDE.
[2022-06-04] VITALS (7 sets, daily range): BP systolic 129–173; BP diastolic 55–65
--- NOTE | 2022-06-04 00:15 | NUR ---
HIGH BP WAS REPORTED 173/64, VASOTEC IV WAS GIVEN.
--- NOTE | 2022-06-04 00:45 | NUR ---
BP 135/61. PT .MORE RELAX,SON AT BEDSIDE.WHEN BACK TO SLEEP.
[2022-06-04] MEDS ORDERED: MEROPENEM 1 G in IV NORMAL SALINE 100 ML IV SCH (05:00)
[2022-06-04] MEDS: PANTOPRAZOLE SODIUM 40 MG TABLET.DR PO SCH (05:56)
[2022-06-04] MEDS ORDERED: VANCOMYCIN IV 1,000 MG in IV DEXTROSE 5% 250 ML IV ONE (06:00)
--- NOTE | 2022-06-04 06:46 | NUR ---
resting quietly, afebrile.endorsed in fair condition
[2022-06-04 07:23] LABS: HEMATOCRIT 28.5 % (36.7-47.1); MEAN CORPUSCULAR HEMOGLOBIN 32.6 uug (23.8-33.4); MEAN CORPUSCULAR VOLUME 98.1 fL (73.0-96.2); PLATELET COUNT (AUTO) 404 K/uL (152-348)
[2022-06-04 07:44] LABS: ALANINE AMINOTRANSFERASE 73 U/L (16-63); ALKALINE PHOSPHATASE 84 U/L (50-136); ASPARTATE AMINOTRANSFERASE 52 U/L (15-37); BILIRUBIN,TOTAL 0.4 mg/dL (0.2-1.0); CARBON DIOXIDE 22 mmol/L (21-32); CHLORIDE 103 mmol/L (98-107); GLUCOSE 108 mg/dL (74-106); POTASSIUM 4.6 mmol/L (3.5-5.1); TOTAL PROTEIN, SERUM 6.4 g/dL (6.4-8.2); UREA NITROGEN, BLOOD 49 mg/dL (7-18)
[2022-06-04] MEDS: ENSURE CLEAR 240 ML LIQUID (MIX BERRY) PO SCH ×2 (08:00→17:29)
--- NOTE | 2022-06-04 08:54 | NUR ---
[employer] HAS BEEN NOTIFIED OF STUDY. SHE SAID SHE WOULD TAKE CARE OF IT OF THE ORDER. Cora
[2022-06-04 09:06] LABS: *IMMUNOGLOBULIN G, SERUM 1228 mg/dL (603-1613); IMMUNOGLOBULIN M, SERUM 43 mg/dL (15-143)
[2022-06-04] MEDS: ASPIRIN 81 MG TAB.CHEW PO SCH (09:33)
[2022-06-04] MEDS: ALLOPURINOL 100 MG TABLET PO SCH ×2 (09:33→17:02)
[2022-06-04] MEDS: ACIDOPHILUS/BULGARICUS CHEW TAB PO SCH ×2 (09:34→20:07)
[2022-06-04] MEDS: PREGABALIN 25 MG CAPSULE PO SCH ×2 (09:34→20:07)
[2022-06-04] MEDS: hydrALAZINE HCL 50 MG TABLET PO SCH ×2 (09:39→17:05)
[2022-06-04] MEDS: NIFEdipine XL 90 MG TABSR PO SCH (09:40)
[2022-06-04] MEDS: ACETAMINOPHEN 325 MG TABLET PO PRN (09:50)
[2022-06-04] MEDS: methylPREDNISolone SOD SUCC 40 MG/ML VIAL IV SCH ×3 (09:51→21:55)
[2022-06-04] MEDS: NAPROXEN 250 MG TABLET PO SCH ×2 (11:38→17:02)
[2022-06-04 14:06] LABS: A/G RATIO 0.6 (0.7-1.7); ALBUMIN 2.2 g/dL (2.9-4.4); ALPHA-1-GLOBULIN 0.5 g/dL (0.0-0.4); ALPHA-2-GLOBULIN 0.9 g/dL (0.4-1.0); BETA GLOBULIN 0.9 g/dL (0.7-1.3); GAMMA GLOBULIN 1.2 g/dL (0.4-1.8); GLOBULIN, TOTAL 3.5 g/dL (2.2-3.9); M-SPIKE Not Observed g/dL (Not Observed)
--- NOTE | 2022-06-04 16:09 | NUR ---
Patient is resting in bed, his at bedside. I called [facility] to find out if they will do the WBC test today but they said they cannot get Isotop today, it's a special order and they will try to get it done by Wednesday.
[2022-06-04] MEDS: MEROPENEM 1 G in IV NORMAL SALINE 100 ML IV SCH (17:02)
--- NOTE | 2022-06-04 17:05 | NUR ---
Pt's temp came down to 98.6 from 99.4. Pt resting in bed, sleeping. at bedisde.
[2022-06-04] MEDS: HYDROCODONE/APAP 5-325MG TABLET PO PRN (19:58)
[2022-06-04] MEDS: SIMVASTATIN 10 MG TABLET PO SCH (20:07)
[2022-06-05] VITALS: BP 139/65
[2022-06-05 04:00] VITALS: BP 134/69
[2022-06-05] MEDS: HYDROCODONE/APAP 10-325 MG TABLET PO PRN ×3 (04:19→14:33)
[2022-06-05] MEDS: MEROPENEM 1 G in IV NORMAL SALINE 100 ML IV SCH ×2 (04:24→16:46)
[2022-06-05] MEDS: methylPREDNISolone SOD SUCC 40 MG/ML VIAL IV SCH ×3 (05:29→21:45)
[2022-06-05] MEDS: PANTOPRAZOLE SODIUM 40 MG TABLET.DR PO SCH (06:42)
[2022-06-05 06:52] LABS: HEMATOCRIT 27.2 % (36.7-47.1); MEAN CORPUSCULAR HEMOGLOBIN 33.7 uug (23.8-33.4); MEAN CORPUSCULAR VOLUME 98.3 fL (73.0-96.2); PLATELET COUNT (AUTO) 442 K/uL (152-348)
[2022-06-05 07:14] LABS: ALANINE AMINOTRANSFERASE 85 U/L (16-63); ALKALINE PHOSPHATASE 86 U/L (50-136); ASPARTATE AMINOTRANSFERASE 45 U/L (15-37); BILIRUBIN,TOTAL 0.3 mg/dL (0.2-1.0); CARBON DIOXIDE 22 mmol/L (21-32); CHLORIDE 104 mmol/L (98-107); CREATININE 2.8 mg/dL (0.6-1.3); GLUCOSE 136 mg/dL (74-106); POTASSIUM 4.8 mmol/L (3.5-5.1); TOTAL PROTEIN, SERUM 6.5 g/dL (6.4-8.2); UREA NITROGEN, BLOOD 67 mg/dL (7-18)
[2022-06-05] MEDS: PREGABALIN 25 MG CAPSULE PO SCH ×2 (09:10→20:39)
[2022-06-05] MEDS: ASPIRIN 81 MG TAB.CHEW PO SCH (09:10)
[2022-06-05] MEDS: ACIDOPHILUS/BULGARICUS CHEW TAB PO SCH ×2 (09:11→20:39)
[2022-06-05] MEDS: ALLOPURINOL 100 MG TABLET PO SCH ×2 (09:11→16:47)
[2022-06-05] MEDS: NIFEdipine XL 90 MG TABSR PO SCH (09:11)
[2022-06-05] MEDS: ENSURE CLEAR 240 ML LIQUID (MIX BERRY) PO SCH ×2 (09:12→16:47)
[2022-06-05] MEDS: hydrALAZINE HCL 50 MG TABLET PO SCH ×2 (09:12→16:51)
[2022-06-05] MEDS: NAPROXEN 250 MG TABLET PO SCH (09:13)
[2022-06-05 12:00] VITALS: BP 126/59
[2022-06-05 16:00] VITALS: BP 117/48
--- NOTE | 2022-06-05 16:52 | NUR ---
Pt is a/o x 4, worked well with PT today, walked a lap with front wheel walker and assist. pt family at bedside, no signs of acute distress. Pt BP 117/48, held hydralazine 1700 dose due to low diastolic, MD aware. Comfort measures provided, call light within reach.
[2022-06-05 20:00] VITALS: BP 136/58
[2022-06-05] MEDS: SIMVASTATIN 10 MG TABLET PO SCH (20:39)
--- NOTE | 2022-06-06 05:51 | NUR ---
Slept throughout the night, son at bedside. No fevers noted. Able to ambulate with assistance and FWW. Denies pain at this time. IV site intact. Able to communicate needs. Will endorse to day shift.
[2022-06-06] MEDS: PANTOPRAZOLE SODIUM 40 MG TABLET.DR PO SCH (06:23)
[2022-06-06] MEDS: methylPREDNISolone SOD SUCC 40 MG/ML VIAL IV SCH ×3 (06:23→21:00)
[2022-06-06] MEDS: MEROPENEM 1 G in IV NORMAL SALINE 100 ML IV SCH ×2 (06:23→16:55)
[2022-06-06 08:22] LABS: HEMATOCRIT 25.5 % (36.7-47.1); MEAN CORPUSCULAR HEMOGLOBIN 33.2 uug (23.8-33.4); MEAN CORPUSCULAR VOLUME 98.9 fL (73.0-96.2); PLATELET COUNT (AUTO) 477 K/uL (152-348)
[2022-06-06 08:28] LABS: ALANINE AMINOTRANSFERASE 90 U/L (16-63); ALKALINE PHOSPHATASE 91 U/L (50-136); ASPARTATE AMINOTRANSFERASE 39 U/L (15-37); BILIRUBIN,TOTAL 0.3 mg/dL (0.2-1.0); CARBON DIOXIDE 20 mmol/L (21-32); CHLORIDE 105 mmol/L (98-107); CREATININE 2.9 mg/dL (0.6-1.3); GLUCOSE 113 mg/dL (74-106); POTASSIUM 4.9 mmol/L (3.5-5.1); TOTAL PROTEIN, SERUM 6.2 g/dL (6.4-8.2)
[2022-06-06 08:43] LABS: UREA NITROGEN, BLOOD 90 mg/dL (7-18)
[2022-06-06] MEDS: ASPIRIN 81 MG TAB.CHEW PO SCH (08:50)
[2022-06-06] MEDS: ACIDOPHILUS/BULGARICUS CHEW TAB PO SCH ×2 (08:50→20:41)
[2022-06-06] MEDS: ENSURE CLEAR 240 ML LIQUID (MIX BERRY) PO SCH ×2 (08:50→16:56)
[2022-06-06] MEDS: ALLOPURINOL 100 MG TABLET PO SCH ×2 (08:50→16:55)
[2022-06-06] MEDS: PREGABALIN 25 MG CAPSULE PO SCH ×2 (08:50→20:41)
[2022-06-06] MEDS: NIFEdipine XL 90 MG TABSR PO SCH (08:59)
[2022-06-06] MEDS: hydrALAZINE HCL 50 MG TABLET PO SCH ×2 (09:01→16:56)
--- NOTE | 2022-06-06 11:17 | NUR ---
Critical level of BUN reported of 90. MD has been notified consent for nuclear medicine scan obtained.
[2022-06-06 12:37] VITALS: BP 144/60
[2022-06-06 16:34] VITALS: BP 153/62
--- NOTE | 2022-06-06 16:49 | NUR ---
Patient has been titrated off of oxygen, saturating 96% on room air. Pt injected with isotope by staff in preparation for nuclear medicine scan tomorrow 06/07/22.
[2022-06-06 20:18] VITALS: BP 137/53
[2022-06-06] MEDS: SIMVASTATIN 10 MG TABLET PO SCH (20:41)
[2022-06-07] VITALS: BP 135/60
[2022-06-07 04:00] VITALS: BP 163/66
--- NOTE | 2022-06-07 05:35 | NUR ---
Pt slept throughout the ngiht. No distress noted. Able to make needs known. IV site intact. Son is at bedside. Able to ambulate with FWW. Safety maintained throughout the shift. Will endorse to day shift.
[2022-06-07] MEDS: PANTOPRAZOLE SODIUM 40 MG TABLET.DR PO SCH (05:53)
[2022-06-07] MEDS: MEROPENEM 1 G in IV NORMAL SALINE 100 ML IV SCH ×2 (05:53→16:42)
[2022-06-07] MEDS: methylPREDNISolone SOD SUCC 40 MG/ML VIAL IV SCH ×3 (05:53→21:03)
[2022-06-07 07:06] LABS: HEMATOCRIT 26.1 % (36.7-47.1); MEAN CORPUSCULAR HEMOGLOBIN 33.2 uug (23.8-33.4); PLATELET COUNT (AUTO) 500 K/uL (152-348)
--- NOTE | 2022-06-07 07:30 | NUR ---
RECEIVED AWAKE, IN PLEASANT MOOD. DENIES SOB OR PAIN SATTING 97% ON RA. IV ON EVA MIDLINE INTACT IV ATB INFUSING ORDERED. COMFORTABLY WATCHING TV. LEFT ELBOW STITCHES DRY AND INTACT. CALL LIGHT IN REACH. CONT TO MONITOR.
[2022-06-07 07:44] LABS: ALANINE AMINOTRANSFERASE 94 U/L (16-63); ALKALINE PHOSPHATASE 111 U/L (50-136); ASPARTATE AMINOTRANSFERASE 37 U/L (15-37); BILIRUBIN,TOTAL 0.2 mg/dL (0.2-1.0); CARBON DIOXIDE 23 mmol/L (21-32); CHLORIDE 110 mmol/L (98-107); CREATININE 2.2 mg/dL (0.6-1.3); GLUCOSE 111 mg/dL (74-106); POTASSIUM 5.1 mmol/L (3.5-5.1); TOTAL PROTEIN, SERUM 6.1 g/dL (6.4-8.2)
[2022-06-07 08:02] LABS: UREA NITROGEN, BLOOD 84 mg/dL (7-18)
[2022-06-07] MEDS: ASPIRIN 81 MG TAB.CHEW PO SCH (08:44)
[2022-06-07] MEDS: NIFEdipine XL 90 MG TABSR PO SCH (08:44)
[2022-06-07] MEDS: ENSURE CLEAR 240 ML LIQUID (MIX BERRY) PO SCH ×2 (08:45→16:42)
[2022-06-07] MEDS: ACIDOPHILUS/BULGARICUS CHEW TAB PO SCH ×2 (08:46→20:40)
[2022-06-07] MEDS: hydrALAZINE HCL 50 MG TABLET PO SCH ×2 (08:46→16:42)
[2022-06-07] MEDS: ALLOPURINOL 100 MG TABLET PO SCH ×2 (08:46→16:42)
[2022-06-07] MEDS: PREGABALIN 25 MG CAPSULE PO SCH ×2 (08:56→20:40)
--- NOTE | 2022-06-07 10:47 | NUR ---
At 1030, picked up by Linh from nuclear medicine for scheduled procedure. Left via wc.
--- NOTE | 2022-06-07 13:01 | NUR ---
Came back from scheduled procedure via wc in stable condition. Telemonitor reconnected nsr.
[2022-06-07 16:05] VITALS: BP 101/59
--- NOTE | 2022-06-07 17:31 | NUR ---
SR on tele. No change from morning assessment.
--- NOTE | 2022-06-07 18:48 | NUR ---
Follow up made regarding Flow Cytometry lab order. Per [place], specimen will be drawn tomorrow and will send send specimen out to outside lab. Will endorse accordingly.
[2022-06-07 20:00] VITALS: BP 139/66
[2022-06-07] MEDS: SIMVASTATIN 10 MG TABLET PO SCH (20:40)
[2022-06-08] VITALS: BP 155/61
[2022-06-08 04:00] VITALS: BP 108/46
--- NOTE | 2022-06-08 05:48 | NUR ---
Slept thorughout the night with son at bedside. Denies pain or SOB, no distress noted at this time. IV site intact. Able to communicate needs. Able to ambulate with FWW. Safety maintained. Remained afebrile. Will endorse to day shift.
[2022-06-08] MEDS: methylPREDNISolone SOD SUCC 40 MG/ML VIAL IV SCH (06:12)
[2022-06-08] MEDS: MEROPENEM 1 G in IV NORMAL SALINE 100 ML IV SCH (06:12)
[2022-06-08] MEDS: PANTOPRAZOLE SODIUM 40 MG TABLET.DR PO SCH (06:12)
--- NOTE | 2022-06-08 08:00 | NUR ---
Awake, alert, oriented x 4. Denies pain. Left elbow with sutures, clean and dry.
[2022-06-08] MEDS ORDERED: NIFE90TA61 PO (09:07)
[2022-06-08] MEDS ORDERED: PREG25CA PO (09:07)
[2022-06-08] MEDS ORDERED: PRED20TA PO (09:07)
[2022-06-08] MEDS ORDERED: ALLO100T PO (09:07)
[2022-06-08] MEDS: ASPIRIN 81 MG TAB.CHEW PO SCH (10:09)
[2022-06-08] MEDS: PREGABALIN 25 MG CAPSULE PO SCH (10:10)
[2022-06-08] MEDS: ALLOPURINOL 100 MG TABLET PO SCH (10:10)
[2022-06-08] MEDS: hydrALAZINE HCL 50 MG TABLET PO SCH (10:11)
[2022-06-08] MEDS: NIFEdipine XL 90 MG TABSR PO SCH (10:13)
[2022-06-08] MEDS: ACIDOPHILUS/BULGARICUS CHEW TAB PO SCH (10:14)
[2022-06-08] MEDS: ENSURE CLEAR 240 ML LIQUID (MIX BERRY) PO SCH (10:19)
--- NOTE | 2022-06-08 10:30 | NUR ---
Assisted out of bed by PT, ambulated in the hallway
[2022-06-08 10:43] LABS: MEAN CORPUSCULAR HEMOGLOBIN 32.9 uug (23.8-33.4); MEAN CORPUSCULAR VOLUME 99.2 fL (73.0-96.2); PLATELET COUNT (AUTO) 586 K/uL (152-348)
[2022-06-08 10:58] LABS: ALANINE AMINOTRANSFERASE 92 U/L (16-63); ALKALINE PHOSPHATASE 96 U/L (50-136); ASPARTATE AMINOTRANSFERASE 17 U/L (15-37); BILIRUBIN,TOTAL 0.3 mg/dL (0.2-1.0); CARBON DIOXIDE 21 mmol/L (21-32); CHLORIDE 108 mmol/L (98-107); CREATININE 2.3 mg/dL (0.6-1.3); GLUCOSE 160 mg/dL (74-106); POTASSIUM 4.7 mmol/L (3.5-5.1); TOTAL PROTEIN, SERUM 6.6 g/dL (6.4-8.2)
[2022-06-08 11:17] LABS: UREA NITROGEN, BLOOD 82 mg/dL (7-18)
[2022-06-08 11:33] VITALS: BP 123/58
[2022-06-08 16:00] VITALS: BP 146/72
== END 2022-06-08 17:00 | disposition home health service (06) | DRG 981 ==
LOC: ER 23:00 → TRANSITION 05-28 13:38 → MEDSURG3 05-28 14:11 → TELE3 05-28 20:30
PROVIDERS: ADMIT Internal Medicine; ATTEND Internal Medicine
PROC: 0R9M0ZZ Drainage of Left Elbow Joint, Open Approach (ICD-10-PCS; principal; 2022-05-29)
PROC: 05H533Z Insertion of Infusion Device into Right Subclavian Vein, Percutaneous Approach (ICD-10-PCS; 2022-06-02)
PROC: B546ZZA Ultrasonography of Right Subclavian Vein, Guidance (ICD-10-PCS; 2022-06-02)
PROC: 02HV33Z Insertion of Infusion Device into Superior Vena Cava, Percutaneous Approach (ICD-10-PCS; 2022-06-06)
PROC: B548ZZA Ultrasonography of Superior Vena Cava, Guidance (ICD-10-PCS; 2022-06-06)
DX: L03.114 Cellulitis of left upper limb (principal); N17.0 Acute kidney failure with tubular necrosis; M25.422 Effusion, left elbow; M10.9 Gout, unspecified; D72.821 Monocytosis (symptomatic); D75.839 Thrombocytosis, unspecified; E88.09 Other disorders of plasma-protein metabolism, not elsewhere classified; N18.9 Chronic kidney disease, unspecified; Z20.822 Contact with and (suspected) exposure to COVID-19; Z79.82 Long term (current) use of aspirin; Z79.899 Other long term (current) drug therapy; D53.9 Nutritional anemia, unspecified; I12.9 Hypertensive chronic kidney disease with stage 1 through stage 4 chronic kidney disease, or unspecified chronic kidney disease; E78.5 Hyperlipidemia, unspecified; D72.829 Elevated white blood cell count, unspecified; N32.3 Diverticulum of bladder; K52.9 Noninfective gastroenteritis and colitis, unspecified; M77.8 Other enthesopathies, not elsewhere classified; N32.0 Bladder-neck obstruction; M25.522 Pain in left elbow
CPT/HCPCS: 36415; 70490; 71045; 71250; 73070; 74018; 76770; 82378; 82784; 83550; 83605; 83690; 83735; 83921; 84100; 84153; 84155; 84165; 84300; 84443; 84550; 85025; 85651; 85730; 86038; 86140; 86334; 86430; 87040; 87070; 87086; 87205; 93005; 93307; A4649; A4663; A9547; G0378; J1100; J2185; J2270; J2405; J2543; J2920; J3010; J3370; J3420; J3490; J7040; J7050; J7509; J8499